=== PATIENT | male | born 1965 | race Caucasian/White ===

== ENCOUNTER 2021-01-09 18:32 | Observation (INO) ==
[2021-01-09 19:08] LABS: ABS Basophils 0.1 10^3/ul (0-0.2); ABS Eosinophils 0.1 10^3/ul (0-0.6); ABS Lymphocytes 1.7 10^3/ul (1.0-4.8); ABS Monocytes 0.5 10^3/ul (0-0.8); ABS Neutrophils 4.3 10^3/ul (1.5-7.7); Eosinophil % 1.9 %; Hematocrit 42 % (42-52); Hemoglobin 14.2 g/dL (14.0-18.0); Lymphocyte % 25.7 %; Mean Corpuscular HGB Conc 34 g/dL (31-36); Mean Corpuscular Hemoglobin 30 pg (27-31); Mean Corpuscular Volume 90 fL (80-94); Mean Platelet Volume 7.4 fL (7.4-10.4); Platelet Count 320 10^3/uL (150-450); Red Cell Distribution Width 13 % (10-15); White Blood Count 6.7 10^3/uL (3.5-10.8)
[2021-01-09 19:18] LABS: INR 1.27 (0.86-1.15)
[2021-01-09 19:21] LABS: Albumin 4.5 g/dL (3.2-5.2); Albumin/Globulin Ratio 1.6 (1-3); Calcium 9.9 mg/dL (8.6-10.3); EGFR African American 102.8 (>60); Globulin 2.8 g/dL (2-4); Potassium 3.4 mmol/L (3.5-5.0); Total Bilirubin 0.7 mg/dL (0.2-1.0); Total Protein 7.3 g/dL (6.4-8.9)
[2021-01-09] MEDS ORDERED: Iohexol 350 (CONTRAST) 500 ML MDV IV ONE (20:43)
[2021-01-10] MEDS ORDERED: Potassium Chlor 20 meq TAB.ER PO ONE (00:36)
[2021-01-10 12:49] VITALS: BP 122/83
[2021-01-12 10:36] LABS: Free Protein S Antigen 74 % (65 - 160)
[2021-01-12 11:05] LABS: Protein C Activity 119 % (70 - 150)
[2021-01-12 11:51] LABS: LAC APTT 39 sec (25 - 37); LAC INR 1.6 (0.9-1.1); LAC PT Mix 1:1 13.6 sec (9.4 - 12.5); Prothrombin Time(LAC) 18.1 sec (9.4 - 12.5); Thrombin Time (Bovine), P 18.7 sec
[2021-01-12 18:34] LABS: Phospholipid Ab IgG < 9.4 GPL; Phospholipid Ab IgM, S < 9.4 MPL
[2021-01-12 20:12] LABS: Beta 2 Glycoprotein IgG <9.4 U/mL
[2021-01-13 20:24] LABS: Prothrombin 20210 Mutation Negative (Negative)
[2021-01-13 20:27] LABS: Factor V Leiden Mutation Heterozygous (Negative)
[2021-01-14 01:44] LABS: Protein C Total Antigen 86 % (63-153)
== END 2021-01-10 12:42 | disposition home or self-care (01) ==
LOC: MEDTELE 18:32 → ED 18:32 → MEDTELE 01-10 12:40
PROVIDERS: ADMIT Hospitalist; ATTEND Student in an Organized Health Care Education/Training Program